=== PATIENT | male | born 1985 | race Caucasian/White ===

== ENCOUNTER 2023-05-06 15:42 | Outpatient (CLI) | payer OTHER ==
--- NOTE | 2023-05-07 15:29 | Ultrasound Report ---
PROCEDURE: Carotid Doppler Complete INDICATIONS: PLAQUE BUILDUP TECHNIQUE: Duplex carotid ultrasound was obtained and senior customer service representative images were recorded with veloc ity measurements. Any estimate of stenosis was obtained with reference to standards endorsed by the [employer] COMPARISON: None. FINDINGS: Right side: Brachial blood pressure: 126/73 mm Hg. Common carotid artery peak systolic velocity: 103 cm/sec. Internal carotid artery peak systolic velocity: 87 cm/sec. Internal carotid artery end diastolic velocity: 19 cm/sec. External carotid artery peak systolic velocity: 111 cm/sec. ICA/CCA peak systolic ratio: 0.8 . Sanches scale imaging description: Mild atherosclerotic plaque Percent internal carotid artery stenosis: Less than 50. Vertebral artery: Flow direction is antegrade. Incidental note is made of a linear echogenicity in the proximal CCA with flow disturbances. No obstr uction to flow in the distal CCA and ICA Left side: Brachial blood pressure: 143/80 mm Hg. Common carotid artery peak systolic velocity: 100 cm/sec. Internal carotid artery peak systolic velocity: 67 cm/sec. Internal carotid artery end diastolic velocity: 18 cm/sec. External carotid artery peak systolic velocity: 69 cm/sec. ICA/CCA peak systolic ratio: 0.7 . Sanches scale imaging description: Mild atherosclerotic plaque Percent internal carotid artery stenosis: Less than 50. Vertebral artery: Flow direction is antegrade. IMPRESSION: 1. No duplex ultrasound evidence of hemodynamically significant stenosis. 2. Linear echogenicity in the proximal CCA with flow disturbance is of uncertain etiology. Advise fol low-up CTA neck for further evaluation. Reviewed by: Nando Williamson MD on 05/07/2023 2:28 PM AKDT Approved by: Nando Williamson MD on 05/07/2023 2:28 PM AKDT Station ID: [id number]
== END 2023-05-06 15:43 | disposition home or self-care (01) ==
LOC: DI 15:42
DX: Z09 Encounter for follow-up examination after completed treatment for conditions other than malignant neoplasm (principal)
CPT/HCPCS: 93880